=== PATIENT | female | born 1955 | race African-American/Black ===

== ENCOUNTER 2021-04-28 08:29 | Inpatient (IN) | payer MEDICARE ==
[~2021-04-28] VITALS: Ht 162.6 cm; Wt 63.5 kg
[2021-04-28] MEDS ORDERED: SODIUM CHLORIDE 0.9% 1,000 ML IV ONE (09:15)
[2021-04-28 09:37] LABS: CHLORIDE 103 mEq/L (98-107)
[2021-04-28 09:40] LABS: BASOPHILS % 0.2 % (0.0-2.0); HEMATOCRIT. 34.6 % (36.0-48.0); LYMPHOCYTES % 7.9 % (20.0-50.0); MEAN CORPUSCULAR HEMOGLOBIN 31.9 pg (28.0-32.0); MEAN CORPUSCULAR VOLUME 91.9 fL (81.0-99.0); MEAN PLATELET VOLUME 7.8 fl (7.4-10.4); MONOCYTES % 3.4 % (2.0-8.0); NEUTROPHILS % 88.5 % (40.0-76.0); PLATELET 274 x1000/uL (130-400); PROTHROMBIN TIME 10.3 sec (9.6-11.0); RED BLOOD CELL COUNT 3.76 mill/uL (4.2-5.4); RED CELL DISTRIBUTION WIDTH 13.2 % (11.6-14.6)
[2021-04-28 09:44] LABS: BETA HYDROXYBUTYRATE 0.1 mMol/L (0.0-0.3)
[2021-04-28] MEDS ORDERED: HYDRALAZINE 20MG/ML VIAL IV ONE (11:30)
[2021-04-28 12:06] LABS: CLARITY URINE CLEAR (CLEAR); COLOR URINE YELLOW (YELLOW); KETONES URINE NEGATIVE (NEGATIVE); LEUKOCYTE ESTERASE URINE NEGATIVE (NEGATIVE); NITRITE URINE NEGATIVE (NEGATIVE); OCCULT BLOOD URINE NEGATIVE (NEGATIVE); PH URINE 5.5 (4.5-8.0); PROTEIN URINE NEGATIVE (NEGATIVE); SPECIFIC GRAVITY URINE 1.025 (1.005-1.030); UROBILINOGEN URINE 0.2 E.U./dL (0.2-1.0)
[2021-04-28] MEDS ORDERED: LABETALOL 5MG/ML SYR 20 MG/4 ML SYRINGE IV ONE (13:00)
[2021-04-28] MEDS ORDERED: INSULIN LISPRO 100 UNITS/ML SUBCUT ONE (13:00)
[2021-04-28 16:00] VITALS: BP 145/61
[2021-04-28 16:54] VITALS: BP 145/61
[2021-04-28] MEDS ORDERED: HYDR-4133 MT (17:04)
[2021-04-28] MEDS ORDERED: METF-873 MT (17:04)
[2021-04-28] MEDS ORDERED: ROSU5TAB MT (17:04)
[2021-04-28] MEDS ORDERED: ONDANSETRON HCL 4MG/2ML INJ IV PRN (17:15)
[2021-04-28] MEDS ORDERED: ACETAMINOPHEN 325MG TABLET PO PRN (17:15)
[2021-04-28] MEDS ORDERED: DEXTROSE 50% WATER 50ML SYRINGE IV PRN (17:15)
[2021-04-28] MEDS: INSULIN LISPRO 100 UNITS/ML SUBCUT SCH ×2 (17:48→20:04)
[2021-04-28] MEDS: BLOOD SUGAR DIAGNOSTIC STRIP TEST SCH (20:04)
[2021-04-28 21:27] VITALS: BP 124/70
[2021-04-28] MEDS: INSULIN GLARGINE UD 100 UNITS/ML SYR SUBCUT SCH (21:27)
[2021-04-29 01:10] VITALS: BP 143/62
[2021-04-29 05:24] VITALS: BP 138/63
[2021-04-29] MEDS: INSULIN LISPRO 100 UNITS/ML SUBCUT SCH ×4 (05:56→21:17)
[2021-04-29] MEDS: BLOOD SUGAR DIAGNOSTIC STRIP TEST SCH ×4 (05:56→21:18)
[2021-04-29 08:00] VITALS: BP 159/86
[2021-04-29] MEDS: INSULIN GLARGINE UD 100 UNITS/ML SYR SUBCUT SCH ×2 (09:18→21:18)
[2021-04-29 12:00] VITALS: BP 145/76
[2021-04-29 16:00] VITALS: BP 144/64
[2021-04-29 20:00] VITALS: BP_SYST 149; BP_SYST 155; BP_SYST 157; BP_DIAS 66; BP_DIAS 67; BP_DIAS 74
[2021-04-30] VITALS: BP 147/70
[2021-04-30 04:00] VITALS: BP 153/70
[2021-04-30] MEDS: BLOOD SUGAR DIAGNOSTIC STRIP TEST SCH ×2 (06:15→12:39)
[2021-04-30] MEDS: INSULIN LISPRO 100 UNITS/ML SUBCUT SCH ×2 (06:20→12:42)
[2021-04-30 07:22] LABS: CHLORIDE 105 mEq/L (98-107)
[2021-04-30 08:00] VITALS: BP_SYST 147; BP_SYST 167; BP_SYST 169; BP_DIAS 81; BP_DIAS 82
[2021-04-30] MEDS ORDERED: AMLODIPINE 5MG TABLET PO SCH (09:00)
[2021-04-30] MEDS: INSULIN GLARGINE UD 100 UNITS/ML SYR SUBCUT SCH (09:37)
[2021-04-30 10:17] LABS: BASOPHILS % 0.3 % (0.0-2.0); EOSINOPHILS % 0.4 % (0.0-5.0); HEMATOCRIT. 32.1 % (36.0-48.0); HEMOGLOBIN. 11.2 g/dL (12.0-16.0); LYMPHOCYTES % 10.3 % (20.0-50.0); MEAN CORPUSCULAR HEMOGLOBIN 31.9 pg (28.0-32.0); MEAN CORPUSCULAR VOLUME 91.7 fL (81.0-99.0); MEAN PLATELET VOLUME 7.5 fl (7.4-10.4); MONOCYTES % 8.4 % (2.0-8.0); NEUTROPHILS % 80.6 % (40.0-76.0); PLATELET 218 x1000/uL (130-400); RED CELL DISTRIBUTION WIDTH 12.8 % (11.6-14.6)
[2021-04-30] MEDS ORDERED: POTASSIUM CHLORIDE 20MEQ TABLET SR PO NR (11:00)
[2021-04-30] MEDS ORDERED: LANTUSUD SUBCUT (11:01)
[2021-04-30 12:00] VITALS: BP 151/78
[2021-04-30] MEDS ORDERED: CLONIDINE 0.1MG TABLET PO NR (14:00)
[2021-04-30] MEDS ORDERED: AMLO5TAB88 MT (14:03)
[2021-04-30] MEDS ORDERED: HYDR-4135 MT (14:03)
[2021-04-30 15:05] VITALS: BP 140/76
== END 2021-04-30 15:40 | disposition home or self-care (01) | DRG 74 ==
LOC: ER 08:29 → 5WST 13:31 → ENRESERV 15:42
PROVIDERS: ADMIT Internal Medicine; ATTEND Internal Medicine
DX: G90.8 Other disorders of autonomic nervous system (principal); I16.0 Hypertensive urgency; E11.65 Type 2 diabetes mellitus with hyperglycemia; E87.6 Hypokalemia; I10 Essential (primary) hypertension; Z87.891 Personal history of nicotine dependence; Z88.5 Allergy status to narcotic agent; Z88.0 Allergy status to penicillin; Z88.2 Allergy status to sulfonamides
CPT/HCPCS: 36415; 80048; 80053; 81003; 82010; 82962; 83036; 84145; 85025; 99285; J0360; J1815; J2405; J3490; J7030